=== PATIENT | male | born 1950 | race African-American/Black ===

== ENCOUNTER → 2019-10-17 | Outpatient (CLI) | payer OTHER | LOC: MRI 11:30 | DX: M47.26 Other spondylosis with radiculopathy, lumbar region (principal); G89.4 Chronic pain syndrome; Z79.899 Other long term (current) drug therapy ==

== ENCOUNTER → 2020-04-02 | Outpatient (CLI) | payer OTHER | LOC: LAB 03-13 12:22 | PROVIDERS: ATTEND Anesthesiology | DX: Z01.812 Encounter for preprocedural laboratory examination (principal); Z11.59 Encounter for screening for other viral diseases ==